=== PATIENT | female | born 1990 | race Caucasian/White ===

== ENCOUNTER 2024-10-04 07:53 | Day surgery (SDC) | payer OTHER ==
[2024-09-29 11:06] LABS: URINE APPEARANCE Clear; URINE BILIRRUBIN Negative (NEGATIVE); URINE BLOOD Trace; URINE COLOR Yellow; URINE GLUCOSE Negative (NEGATIVE); URINE KETONE Negative (NEGATIVE); URINE LEUKOCYTE Negative; URINE NITRATE Negative; URINE PROTEIN Trace (NEGATIVE); URINE UROBILINOGEN 0.2 E.U./dl
[2024-09-29 11:12] LABS: URINE BACTERIA 569.1 uL (0.0-1933); URINE EPITHELIAL CELLS 29.9 uL (0.0-38.8); URINE RBC 34.1 uL (0.0-20.8); URINE WBC 9.1 uL (0.0-23.2)
[2024-09-29 11:14] LABS: HEMATOCRIT 37.7 % (36.0-45.00); HEMOGLOBIN 12.5 g/dL (12.0-15.00); MEAN CELL VOLUME 78.5 fL (80.00-100.00); MEAN CORPUSCULAR HEMOGLOBIN 26.1 pg (27.00-32.0); MEAN CORPUSCULAR HGB CONC 33.2 g/dl (32.0-36.0); PLATELET COUNT 389 K/uL (150-450); RED BLOOD COUNT 4.81 M/uL (4.00-6.00)
[2024-09-29 11:25] LABS: URINE CAST 0.14 uL (0.0-1.40)
[2024-09-29 11:38] LABS: ALBUMIN 4.1 gm/dL (3.4-5.0); BILIRUBIN TOTAL 0.54 mg/dL (0.3-1.2); CALCIUM 9.4 mg/dL (8.5-10.1); CREATININE SERUM 0.59 mg/dL (0.55-1.02); GFR 116.68; GLOBULINA 4.1 G/DL (2.4-3.5); POTASSIUM 3.94 mEq/L (3.5-5.1); TOTAL PROTEIN 8.2 gm/dL (6.4-8.2)
[2024-09-29 11:40] LABS: INR 1.01; PARTIAL THROMBOPLASTIN TIME 28.5 SECONDS (22.0-34.0)
[~2024-10-04 07:53] MED LIST: PROVENTIL3 ML/2.5 M IH; SINGULAIR10 MG PO
[2024-10-04] MEDS ORDERED: MORPHINE SULFATE 4 MG/ML VIAL IV ONE ×2 (15:15→15:45)
== END 2024-10-04 16:10 | disposition home or self-care (01) ==
LOC: CIR.AMB 07:53
PROVIDERS: ATTEND Orthopaedic Surgery Hand Surgery
DX: S42.351S Displaced comminuted fracture of shaft of humerus, right arm, sequela (principal); M24.511 Contracture, right shoulder; Z91.018 Allergy to other foods; Z91.013 Allergy to seafood